=== PATIENT | male | born 1945 | race Caucasian/White ===

== ENCOUNTER 2018-08-21 14:09 | Outpatient (CLI) | payer OTHER | END 2018-08-21 14:13 | disposition home or self-care (01) | LOC: RAD 14:09 | DX: J32.8 Other chronic sinusitis (principal) ==

== ENCOUNTER 2019-09-12 09:03 | Outpatient (CLI) | payer OTHER | END 2019-09-12 10:00 | disposition home or self-care (01) | LOC: RAD 09:03 | DX: M25.571 Pain in right ankle and joints of right foot (principal) ==

== ENCOUNTER → 2020-01-17 | Outpatient (CLI) | payer OTHER | END | disposition home or self-care (01) | LOC: MRI 09:42 | PROVIDERS: ATTEND Otolaryngology | DX: H91.8X2 Other specified hearing loss, left ear (principal) | CPT/HCPCS: 70553; A9575; 70552 ==

== ENCOUNTER 2021-02-03 07:37 | Outpatient (CLI) | payer OTHER | END 2021-02-03 07:39 | disposition home or self-care (01) | LOC: SONOGRAMA 07:37 | PROVIDERS: ATTEND Internal Medicine Gastroenterology | DX: J32.0 Chronic maxillary sinusitis (principal); R10.13 Epigastric pain; R27.8 Other lack of coordination ==

== ENCOUNTER → 2023-06-09 | Outpatient (CLI) | payer OTHER | END | disposition home or self-care (01) | LOC: NUCLEAR 07:00 | PROVIDERS: ATTEND Internal Medicine | DX: I20.81 Angina pectoris with coronary microvascular dysfunction (principal) | CPT/HCPCS: 78452; 93017; A9500; J0153 ==

== ENCOUNTER 2024-04-25 09:49 | Outpatient (CLI) | payer OTHER | END 2024-04-25 10:01 | disposition home or self-care (01) | LOC: RAD 09:49 | PROVIDERS: ATTEND Internal Medicine | DX: M25.521 Pain in right elbow (principal) ==